=== PATIENT | male | born 1940 | race Caucasian/White ===

== ENCOUNTER → 2018-04-13 11:49 | Outpatient (CLI) | payer MEDICARE, SELFPAY ==
[2018-04-13 14:51] LABS: Absolute Lymphocyte Count 1.65 X10^3/ul (0.83-4.51); Absolute Neutrophil Count 3.3 X10^3/uL (2.0-7.7); Basophil# 0.09 X10^3/uL; Basophil% 1.5 % (0-1); Eosinophil# 0.28 X10^3/uL; Eosinophils% 4.7 % (0-5); Hematocrit 39.6 % (40-54); Hemoglobin 13.4 g/dl (13.0-16.5); Lymphocyte # 1.65 X10^3/ul (4.0); Lymphocyte % 27.6 % (19-41); Mean Corp Hgb Conc 33.8 g/gl (32-36); Mean Corpuscular Hgb 34.6 pg (27.0-32.0); Mean Corpuscular Volume 102.3 fL (80-94); Monocyte# 0.66 X10^3/uL; Monocyte% 11.1 % (0-10); Neutrophil # 3.29 X10^3/uL (2.7-7.7); Neutrophil % 55.1 % (47-70); Platelet Count 230 K/mm3 (150-450); RBC Distribution Width CV 14.6 % (11.6-14.6); RBC Distribution Width SD 54.4 fl (35.1-43.9); Red Blood Count 3.87 M/mm3 (4.6-6.2)
[2018-04-13 14:53] LABS: POSITIVE COUNT NO; POSITIVE DIFFERENTIAL NO; POSITIVE MORPHOLOGY NO
[2018-04-13 15:02] LABS: AST(SGOT) 34 U/L (15-37); Alanine Aminotransfer ALT/SGPT 26 U/L (16-61); Albumin, Serum 3.7 g/dL (3.2-5.0); Alkaline Phosphatase 89 U/L (45-117); Bilirubin, Direct 0.13 mg/dL (0.00-0.30); Globulin 4.2 g/dL (2.2-4.2); Protein, Total 7.9 g/dL (6.4-8.2)
[2018-04-15 15:15] LABS: AFP, Tumor Marker 2.3 ng/mL (0.0-8.3)
--- OUTSIDE RECORDS SUMMARY | 2018-07-15 21:15 | XMS RPT_ITS ---
:1940 Author Organization [facility] Care Team Providers Name Role Phone KAILEY ORDAZ, DR. SINCLAIR Attending Unavailable MIELNA ORDAZ, DR. GONZALES Primary Care Unavailable Ivan Mark Attending Unavailable Kelly Cross Primary Care Unavailable Ivan Mark Attending Unavailable Ivan Mark Referring Unavailable Kelly Cross Primary Care Unavailable PROBLEMS PROBLEMS No Problem Records FoundPROCEDURES PROCEDURES No Procedure Records FoundRESULTS RESULTS ABDOMEN LIMITED Observed: 04/28/2018 Status: F Source: [place] 8:31 AM [facility] REPOSITORY [facility] Imaging Services [address] [place] [address] Abdomen Limited MR#: [id number] Acct: [id number] Name: LIONEL GARRISON Rep #: [id number] : 1940 M 78 From: Master Dasilva MD PCP: Kelly Cross MD Status: REG CLI Study: Abdomen Limited Date of Exam: 04/28/18 Exam# [id number] Ordering Dr: Ivan Mark MD STUDY: ABDOMINAL ULTRASOUND - RIGHT UPPER QUADRANT REASON FOR VISIT: Male, 78 years old. Cirrhosis TECHNIQUE: Ultrasound evaluation of the right upper quadrant was performed with real-time and static daly-scale imaging. TECHNICAL QUALITY: Adequate. COMPARISON: 05/14/2015 ultrasound FINDINGS: Liver: The liver measures 16 cm. There is increased, coarsened echogenicity of the liver. The bile ducts are within normal limits. There is hepatic color flow. The direction of portal flow is hepatopetal. Simple, anechoic cysts of the liver measure up to 1.8 cm. No solid hepatic masses are seen. Gallbladder: Normal distended gallbladder. The gallbladder wall measures 2.8 mm. There is a negative sonographic Mccarthy's sign. There is no pericholecystic fluid. There are multiple echogenic structures within the gallbladder, consistent with multiple gallstones. Common Bile Duct (C.B.D.): The common bile duct measures 3.0 mm. Pancreas: There is increased echogenicity of the visualized pancreas. There is no demonstrated pancreatic mass or cyst. Right Kidney: Normal size of the right kidney. The right kidney measures 10.6 cm. Normal renal cortex. The right cortex measures 2.0 cm. Simple anechoic cyst of the right kidney measures 1.9 cm. There is no right hydronephrosis. US/Abdomen Limited IMPRESSION: 1. No solid hepatic masses identified. 2. Hepatic and right renal simple cysts. 3. Cholelithiasis. 4. Increased echo pattern of the liver can be associated infiltrating processes such as hepatic steatosis, hepatitis or cirrhosis. 5. 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 Electronically Signed: Master Dasilva MD at 14:33 EST , Service support , CC: Kelly Cross MD; Ivan Mark Network Director: Signed CBC W/DIFF, AUTOMATED Collected: 04/13/2018 Status: F Source: [place] 11:55 AM [facility] REPOSITORY TYPE CODE TESTS RESULT OUT OF RANGE REFERENCE UNITS LAB L100.1000 4.4-11.0 K/mm3 Normal WBC 6.0 LAB L100.1200 4.6-6.2 M/mm3 Low RBC 3.87 LAB L100.1300 13.0-16.5 g/dl Normal HGB 13.4 LAB L100.1400 40-54 % Low HCT 39.6 LAB L100.1500 80-94 fL High MCV 102.3 LAB L100.1600 27.0-32.0 pg High MCH 34.6 LAB L100.1700 32-36 g/gl Normal MCHC 33.8 LAB L100.1810 11.6-14.6 % Normal RDW CV 14.6 LAB L100.1820 35.1-43.9 fl High RDW SD 54.4 LAB L100.1900 150-450 K/mm3 Normal PLT 230 LAB L100.2000 6.2-12.0 fl Normal MPV 11.0 LAB L100.2100 47-70 % Normal NEUT% 55.1 LAB L100.2200 19-41 % Normal LY% 27.6 LAB L100.2300 0-10 % High MONO% 11.1 LAB L100.2400 0-5 % Normal EO% 4.7 LAB L100.2500 0-1 % High BASO% 1.5 LAB L100.2550 0.0-0.9 % Normal IM GRAN % 0.000 Result Comment: IG% - Immature Granulocytes (promyelocytes, myelocytes and metamyelocytes) > 1% indicates that a LEFT SHIFT is Present. LAB L100.2620 2.0-7.7 X10 3/uL Normal Absolute Neut 3.3 LAB L100.2720 0.83-4.51 X10 3/ul Normal Absolute Lymph 1.65 Performed By: #### L100.0100 #### [facility] [address] [place], [address] LIVER PROFILE Collected: 04/13/2018 Status: F Source: [place] 11:55 AM [facility] REPOSITORY TYPE CODE TESTS RESULT OUT OF RANGE REFERENCE UNITS LAB L501.1500 6.4-8.2 g/dL Normal T PROT 7.9 LAB L501.1800 3.2-5.0 g/dL Normal ALB 3.7 LAB L501.1950 2.2-4.2 g/dL Normal GLOB 4.2 LAB L501.4100 15-37 U/L Normal AST 34 LAB L501.4305 45-117 U/L Normal ALK P 89 LAB L501.4405 16-61 U/L Normal ALT 26 LAB L501.4600 0.20-1.00 mg/dL Normal T BILI 0.30 LAB L501.4700 0.00-0.30 mg/dL Normal D BILI 0.13 Performed By: #### L500.3400 #### [facility] [address] [place], [address] AFP, TUMOR MARKER Collected: 04/13/2018 Status: F Source: [place] 11:55 AM [facility] REPOSITORY Order Comment: Is Patient ? N TYPE CODE TESTS RESULT OUT OF RANGE REFERENCE UNITS LAB L3300.0700 0.0-8.3 ng/mL Normal AFP TUMOR 2.3 2253 Result Comment: Richelle ECLIA methodology Performed at: [facility] [id number] Gas Leak Tester: Ivan Smith PhD, Phone: [phone] Performed By: #### L3300.0700 #### [facility] (refer to report for specific site) refer to report for address and phone number ALLERGIES ALLERGIES DATE TYPE / CODE NAME / CODE REACTION SEVERITY SOURCE 05/24/2015 Drug No Known Unknown [facility] Allergy/4160 Allergies/F00 Hospital 42651(SNOMED [id number](RXNOR Repository CT) M) ENCOUNTERS ENCOUNTERS ADMIT/DISCHARGE ACCOUNT NUMBER ADMITTING ENCOUNTER LOCATION SOURCE CLASS 04/28/2018 [id number] Ambulatory [facility] ding:US Repository 04/13/2018 [id number] [facility]ulatory [facility] ding:[facility] Repository 05/22/2017/05/22/19 [id number] Ambulatory BBuilding:KIM Carlos [address] [facility] Repository PAYERS PAYERS ENCOUNTER GUARANTOR PAYER SUBSCRIBER SOURCE 04/28/2018 EULE Primary EULE [place] [id number] Insurance:[place] PRAVEENIGERDOB: [facility] [id number] Repository [address]Ezn: (782) Number: [phone] () [id number] Date: JENNIFER [address] [address]SR: 04/28/2018 Secondary NOT GIVENUNK [place] Insurance:SELF PAY [facility] Number: Effective Repository Date:2018-04-21 04/13/2018 [facility] Insurance:[place] SCHARTIGERDOB: [facility] [id number] [place] Repository [id number]: (330) Number: [id number] () [id number] Date: [address] [address]CS: 04/13/2018 Secondary NOT GIVENUNK [place] Insurance:SELF PAY [facility] Number: Effective Repository Date:2018-04-13 05/22/2017 [facility]:SECURECARE SCHARTIGERDOB: [facility] N THP MEDICAREPolicy [id number] Repository PROSPECT Number: N PROSPECT [place], [place] [id number], [place] [address]Yva: ([phone]) Date:2017-05-04 [id number]: () [id number] [phone] Name:[id number] [facility] ()Tel: [phone] [phone] () [place], [place] [address]YW:
== END ==
PROVIDERS: Family Provider Family Medicine; PCP Family Medicine; Visit Provider Internal Medicine Gastroenterology
DX: K74.60 Unspecified cirrhosis of liver (principal); K75.4 Autoimmune hepatitis
CPT/HCPCS: 36415; 80076; 82105; 85025

== ENCOUNTER → 2018-04-28 08:27 | Outpatient (CLI) | payer MEDICARE, SELFPAY ==
--- NOTE | 2018-04-28 08:31 | US_ITS ---
STUDY: ABDOMINAL ULTRASOUND - RIGHT UPPER QUADRANT REASON FOR VISIT: Male, 78 years old. Cirrhosis TECHNIQUE: Ultrasound evaluation of the right upper quadrant was performed with real-time and static daly-scale imaging. TECHNICAL QUALITY: Adequate. COMPARISON: 05/14/2015 ultrasound FINDINGS: Liver: The liver measures 16 cm. There is increased, coarsened echogenicity of the liver. The bile ducts are within normal limits. There is hepatic color flow. The direction of portal flow is hepatopetal. Simple, anechoic cysts of the liver measure up to 1.8 cm. No solid hepatic masses are seen. Gallbladder: Normal distended gallbladder. The gallbladder wall measures 2.8 mm. There is a negative sonographic Mccarthy's sign. There is no pericholecystic fluid. There are multiple echogenic structures within the gallbladder, consistent with multiple gallstones. Common Bile Duct (C.B.D.): The common bile duct measures 3.0 mm. Pancreas: There is increased echogenicity of the visualized pancreas. There is no demonstrated pancreatic mass or cyst. Right Kidney: Normal size of the right kidney. The right kidney measures 10.6 cm. Normal renal cortex. The right cortex measures 2.0 cm. Simple anechoic cyst of the right kidney measures 1.9 cm. There is no right hydronephrosis. US/Abdomen Limited IMPRESSION: 1. No solid hepatic masses identified. 2. Hepatic and right renal simple cysts. 3. Cholelithiasis. 4. Increased echo pattern of the liver can be associated infiltrating processes such as hepatic steatosis, hepatitis or cirrhosis. 5. 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 Electronically Signed: Master Dasilva MD at 14:33 EST , Service support ,
== END ==
PROVIDERS: Family Provider Family Medicine; PCP Family Medicine; Referring Provider Internal Medicine Gastroenterology; Visit Provider Internal Medicine Gastroenterology
DX: K74.60 Unspecified cirrhosis of liver (principal)
CPT/HCPCS: 76705

== ENCOUNTER → 2018-10-19 15:19 | Outpatient (CLI) | payer MEDICARE, SELFPAY ==
--- NOTE | 2018-10-19 12:10 | LES_PTH ---
PATIENT: LIONEL GARRISON LOC: [facility] U#:[id number] AGE/SX: 85/M ROOM: RE10/19/[address]: Dr. Kelly Cross MD : 1940 BED: DIS: SPEC #: [id number] RECD: 10/19/18 15:05 STATUS: ERIC CECE #: [id number] NESS: 10/19/18 12:[address]: Kelly Cross DEPT: SURGICAL PATHOLOGY RECD BY: Linn Tamez Tissues: Skin of hand and finger, NOS Procedures: Surgery Specimen Level IV HEADER OPERATION: Excision of lesion, left hand PRE-OP DIAGNOSIS: Skin lesion L98.9 TISSUE SUBMITTED: Lesion, left hand MICROSCOPIC DIAGNOSIS Lesion, left hand: Benign capillary hemangioma. FA:domenico 10/21/18 MICROSCOPIC DESCRIPTION Slides are reviewed. GROSS DESCRIPTION Received is one container labeled with the patient's name and not further designated. The specimen consists of a pinkish-west skin fragment measuring 1.3 x 1.2 x 0.3 cm. The central portion of the skin fragment is bluish-purple measuring 0.8 cm in diameter. The skin margins are inked purple. The specimen is trisected and totally submitted in one cassette. / FA:domenico 10/20/18 TC:1 CPT: 26124
== END ==
PROVIDERS: Family Provider Family Medicine; PCP Family Medicine; Referring Provider Family Medicine; Visit Provider Family Medicine
DX: L98.9 Disorder of the skin and subcutaneous tissue, unspecified (principal)
CPT/HCPCS: 88305

== ENCOUNTER → 2018-12-09 08:20 | Outpatient (CLI) | payer MEDICARE, SELFPAY ==
[2018-12-09 10:30] LABS: Absolute Lymphocyte Count 1.34 X10^3/uL (0.83-4.51); Absolute Neutrophil Count 2.9 X10^3/uL (2.0-7.7); Basophil# 0.07 X10^3/uL; Basophil% 1.3 % (0-1); Eosinophil# 0.29 X10^3/uL; Eosinophils% 5.4 % (0-5); Hematocrit 39.1 % (40-54); Hemoglobin 13.1 g/dL (13.0-16.5); Lymphocyte # 1.34 X10^3/ul (4.0); Mean Corp Hgb Conc 33.5 g/dL (32-36); Mean Corpuscular Hgb 35.4 pg (27.0-32.0); Mean Corpuscular Volume 105.7 fL (80-94); Monocyte# 0.73 X10^3/uL; Monocyte% 13.6 % (0-10); NRBC Flagged by Analyzer 0 % (0-5); Neutrophil # 2.91 X10^3/uL (2.7-7.7); Neutrophil % 54.5 % (47-70); Platelet Count 258 K/mm3 (150-450); RBC Distribution Width CV 14.2 % (11.6-14.6); RBC Distribution Width SD 55.1 fl (35.1-43.9); White Blood Count 5.4 K/mm3 (4.4-11.0)
[2018-12-09 11:18] LABS: AST(SGOT) 27 U/L (15-37); Alanine Aminotransfer ALT/SGPT 20 U/L (16-61); Albumin, Serum 3.5 g/dL (3.2-5.0); Alkaline Phosphatase 82 U/L (45-117); Protein, Total 7.5 g/dL (6.4-8.2)
[2018-12-10 12:35] LABS: AFP, Tumor Marker 2.2 ng/mL (0.0-8.3)
== END ==
PROVIDERS: Family Provider Family Medicine; PCP Family Medicine; Referring Provider Internal Medicine Gastroenterology; Visit Provider Internal Medicine Gastroenterology
DX: K74.60 Unspecified cirrhosis of liver (principal); K75.4 Autoimmune hepatitis
CPT/HCPCS: 36415; 80076; 82105; 85025

== ENCOUNTER 2019-01-14 22:38 | Emergency (ER) | payer MEDICARE, SELFPAY ==
[2019-01-14 22:38] VITALS: BP 156/86; PULSE 61; RESP 16; TEMP 36.7; O2SAT 98; BMI 27.7
--- NOTE | 2019-01-14 22:50 | RAD_ITS ---
HISTORY: PAIN S/P FALL TODAY XAMINATION/TECHNIQUE: XR left wrist 3 views COMPARISON: None FINDINGS: Acute, nondisplaced fracture of the mid pole of the carpal navicular.. No dislocation. The remaining visualized bones appear intact. 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 No additional findings are noted RAD/Wrist min 3 Views IMPRESSION: 1. Acute, nondisplaced mid pole fracture of the carpal navicular, left wrist. 2. Osteoarthritis of the scaphotrapezial-trapezoidal joint. at 1811 Reported and signed by: Blas Julien MD Electronically Signed: Blas Julien, at 23:14 EDT Tel , Service support ,
--- NOTE | 2019-01-14 23:17 | ED.VIS.GEN ---
History of Present Illness Chief Complaint: Upper Extremity Injury Narrative: This patient is a 78-year-old male who presents with left wrist pain. He fell about 6 hours ago. He tripped over a crack in the concrete and fell onto an outstretched left hand. Initially he was trying to manage his pain at home but it continued to worsen so he presented here. No numbness tingling or weakness. No other injuries. No head injury loss of consciousness chest pain back pain shortness of breath abdominal pain or injury to any of the other extremities. Past Medical History - Allergies and Home Meds Allergies/Adverse Reactions: Allergies No Known Allergies Allergy (Verified 01/14/19 22:54) Primary Care Physician: Kelly Cross MD [Primary Care Provider] - Past Medical History: - - Autoimmune hepatitis Smoking Status: Former smoker Review of Systems All systems negative except as indicated General: Denies: Fever Cardiovascular: Denies: Chest pain Respiratory: Denies: Dyspnea Gastrointestinal: Denies: Vomiting Musculoskeletal: Reports: - - Left wrist pain Physical Exam Vital Signs/Narrative: Vital Signs Temp Pulse Resp BP Pulse Ox 01/14/19 22:38 98.1 F 61 16 156/86 H 98 Inital Vital Signs reviewed: Yes General: Well nourished, Well developed Head: Normocephalic Eyes: EOMI ENT: Moist mucous membranes Neck: Supple Cardiovascular: Regular rate, Regular rhythm Respiratory: No distress, CTA bilaterally Extremities: - - Patient has focal tenderness at the anatomical snuffbox on the left he has no pain with supination or pronation of forearm no pain at the elbow he has normal sensation in the median ulnar and radial nerve distributions normal opposition of the digits brisk capillary refill and no tenderness in the hand Skin: Normal color Neurological: Alert Psychological: Normal affect Diagnostic/Tx/Re-eval - Medical Decision Making Left wrist x-ray on my review does show a scaphoid fracture. Distal ulnar and radius appear intact. He was given a thumb spica splint, [place], prescription for [place], he will follow-up with orthopedics. He has previously seen Dr. Hinton. ED Disposition - Plan for ED Patient: Disposition: Home or Assisted Living Diagnosis: Scaphoid fracture Instructions: NAVICULAR FRACTURE, Wrist (Confirmed) Prescriptions: Hydrocodone Bitart/Apap 5-325 [[place] 5MG-325MG] 1 tab PO Q6H PRN 3 Days #10 tab PRN Reason: Pain Prescription Printed Referrals: Kelly Cross MD [Primary Care Provider] -
[2019-01-14] MEDS: HYDROcodone Bitartrate/Apap 5/325 Tablet PO (23:29)
[2019-01-14 23:34] VITALS: RESP 16
== END 2019-01-14 23:35 | disposition home or self-care (01) ==
PROVIDERS: Emergency Provider Emergency Medicine; Family Provider Family Medicine; PCP Family Medicine
DX: S92.252A Displaced fracture of navicular [scaphoid] of left foot, initial encounter for closed fracture (principal); W01.0XXA Fall on same level from slipping, tripping and stumbling without subsequent striking against object, initial encounter; Y93.9 Activity, unspecified; Y92.9 Unspecified place or not applicable; Y99.9 Unspecified external cause status; Z87.891 Personal history of nicotine dependence
CPT/HCPCS: 73110; 99283

== ENCOUNTER → 2020-02-10 15:37 | Outpatient (CLI) | payer MEDICARE, SELFPAY ==
[2020-02-11 07:16] LABS: SARS-COV-2 TOTAL ABS Nonreactive (Nonreactive)
== END ==
PROVIDERS: PCP Family Medicine; Referring Provider Family Medicine; Visit Provider Family Medicine
DX: Z20.828 Contact with and (suspected) exposure to other viral communicable diseases (principal)
CPT/HCPCS: 36415; 86769

== ENCOUNTER 2020-06-13 15:08 | Outpatient (RCR) | payer MEDICARE, SELFPAY | END 2020-06-13 23:59 | LOC: IMMUN 15:08 | PROVIDERS: PCP Family Medicine; Referring Provider Family Medicine; Visit Provider Family Medicine | DX: Z23 Encounter for immunization (principal) | CPT/HCPCS: 0011A; 0012A; 91301 ==

== ENCOUNTER → 2020-07-03 10:34 | Outpatient (CLI) | payer MEDICARE, SELFPAY ==
[2020-07-03 12:28] LABS: PSA,Total - Annual Screen 2.54 ng/mL (0.00-4.00)
== END ==
PROVIDERS: PCP Family Medicine; Referring Provider Family Medicine; Visit Provider Family Medicine
DX: Z00.00 Encounter for general adult medical examination without abnormal findings (principal); R35.1 Nocturia
CPT/HCPCS: 36415; 84153; G0103

== ENCOUNTER → 2021-02-01 09:49 | Outpatient (CLI) | payer MEDICARE, SELFPAY ==
[2021-02-01 13:07] LABS: Absolute Lymphocyte Count 2.01 X10^3/uL (0.83-4.51); Absolute Neutrophil Count 3.3 X10^3/uL (2.0-7.7); Basophil# 0.12 X10^3/uL; Basophil% 1.9 % (0-1); Eosinophil# 0.24 X10^3/uL; Eosinophils% 3.7 % (0-5); Hematocrit 37.6 % (40-54); Hemoglobin 12.7 g/dL (13.0-16.5); Lymphocyte # 2.01 X10^3/ul (0.83-4.51); Mean Corp Hgb Conc 33.8 g/dL (32-36); Mean Corpuscular Hgb 34.5 pg (27.0-32.0); Mean Corpuscular Volume 102.2 fL (80-94); Mean Platelet Vol. 11.5 fl (6.2-12.0); Monocyte# 0.81 X10^3/uL; Monocyte% 12.5 % (0-10); NRBC Flagged by Analyzer 0 % (0-5); Neutrophil # 3.29 X10^3/uL (2.7-7.7); Neutrophil % 50.7 % (47-70); Platelet Count 233 K/mm3 (150-450); RBC Distribution Width CV 14.5 % (11.6-14.6); RBC Distribution Width SD 55.1 fl (35.1-43.9); Red Blood Count 3.68 M/mm3 (4.6-6.2); White Blood Count 6.5 K/mm3 (4.4-11.0)
[2021-02-01 13:43] LABS: AST(SGOT) 31 U/L (15-37); Alanine Aminotransfer ALT/SGPT 22 U/L (16-61); Albumin, Serum 3.3 g/dL (3.2-5.0); Alkaline Phosphatase 89 U/L (45-117); Bilirubin, Direct 0.12 mg/dL (0.00-0.30); Globulin 4.6 g/dL (2.2-4.2); Protein, Total 7.9 g/dL (6.4-8.2)
[2021-02-02 10:11] LABS: AFP, Tumor Marker 2.1 ng/mL (0.0-8.3)
== END ==
PROVIDERS: PCP Family Medicine; Referring Provider Internal Medicine Gastroenterology; Visit Provider Internal Medicine Gastroenterology
DX: K74.60 Unspecified cirrhosis of liver (principal)
CPT/HCPCS: 36415; 80076; 82105; 85025

== ENCOUNTER 2021-04-29 13:53 | Outpatient (CLI) | payer MEDICARE, SELFPAY ==
--- NOTE | 2021-04-29 14:15 | MRI_ITS ---
STUDY: MRI ABDOMEN WITH AND WITHOUT CONTRAST REASON FOR EXAM: Male, 81 years old. CIRRHOSIS TECHNIQUE: Standardized fat and water weighted pulse sequences were obtained in all 3 orthogonal planes post contrast administration. IV Yes Dotarem 15mL was administered for the contrast portion of the examination. COMPARISON: None. FINDINGS: The visualized lung bases are unremarkable. The visualized portions of the heart are within normal limits. Up to 1 cm cysts in the liver. Lobulated hepatic contour suggesting cirrhosis. Cholelithiasis. No significant dilatation of the extrahepatic biliary system. Small spleen or residual splenic nodule. Normal pancreas. Normal bilateral adrenal glands. 1.8 cm cyst of the right kidney. Subcentimeter cysts in left kidney. Normal visualized stomach. Normal visualized small intestine and colon. Normal abdominal aorta. Normal inferior vena cava. Normal retroperitoneum. Normal abdominal wall. Normal osseous structures. MRI/MRI Abd WITH and W/O Contrast IMPRESSION: Cirrhosis. Hepatic and renal cysts. Cholelithiasis. Electronically Signed: Samy Kingsley DO at 16:29 EST Tel [phone], Service support ,
[2021-04-29 14:30] LABS: CREATININE FINGERSTICK 0.9 mg/dL (0.70-1.30); EGFR FINGERSTICK > 60.0000 mL/min (>60)
== END 2021-04-29 23:59 | disposition short-term general hospital (02) ==
PROVIDERS: PCP Family Medicine; Visit Provider Internal Medicine Gastroenterology
DX: K74.60 Unspecified cirrhosis of liver (principal)
CPT/HCPCS: 74183; A9575

== ENCOUNTER 2021-07-23 07:47 | Outpatient (CLI) | payer MEDICARE, SELFPAY ==
--- NOTE | 2021-07-23 08:03 | CT_ITS ---
STUDY: CT SCAN LOWER EXTREMITY RIGHT REASON FOR EXAM: Male, 81 years old. VARUS DEFORMITY.NATI protocol. RADIATION DOSAGE (If Supplied By Facility): CTDIvol = ( 22.39 ) mGy, DLP = ( 3152.13 ) mGycm. Individualized dose optimization techniques were used for this CT.? TECHNIQUE: Multiple axial tomographic images of the right lower extremity were obtained. Coronal and sagittal reconstruction was obtained as well. COMPARISON: None. FINDINGS: Imaging of the right hip joint was performed. There is a moderate degree of joint space narrowing. Degenerative spurring is seen along the superior and inferior aspect of the femoral head as well as acetabular spurs. Imaging of the knee joint was obtained. There is a marked degree of joint space narrowing involving the medial compartment of the knee joint. Mild degree of degenerative changes of the lateral compartment of knee joint with evidence of chondral calcinosis. Moderate degree of joint space narrowing of the patellofemoral joint with spur formation. Lejlg-cq-cokztnbt joint effusion. Imaging of the ankle joint was obtained. No significant abnormality is seen. 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 Marked degree of the joint space narrowing involving the medial compartment of knee joint. Mild degree of joint space and of the lateral compartment of knee joint with chondrocalcinosis. Moderate degree of joint space time of the patellofemoral joint with spur formation and joint effusion. Electronically Signed: Rolando Dodge MD at 15:32 EDT ,
== END 2021-07-23 23:59 | disposition home or self-care (01) ==
LOC: CT 07:48
PROVIDERS: PCP Family Medicine; Referring Provider Orthopaedic Surgery; Visit Provider Orthopaedic Surgery
DX: M21.161 Varus deformity, not elsewhere classified, right knee (principal)
CPT/HCPCS: 73700

== ENCOUNTER 2021-07-23 13:41 | Outpatient (CLI) | payer MEDICARE, SELFPAY ==
--- NOTE | 2021-07-23 08:34 | EKG12_ITS ---
Test Reason : PREOP Blood Pressure : / mmHG Vent. Rate : 072 BPM Atrial Rate : 072 BPM P-R Int : 142 ms QRS Dur : 070 ms QT Int : 392 ms P-R-T Axes : 000 020 -18 degrees QTc Int : 429 ms Normal sinus rhythm ST & T wave abnormality, consider lateral ischemia Abnormal ECG Confirmed by DYLON EMERSON, GABRIEL ([id number]), editor news CHARLOTTE LAWS ([id number]) on 07/24/2021 1:45:39 PM Referred By: Khris Hinton Confirmed By:GABRIEL OSBORNE MD
[2021-07-23 09:04] LABS: Hematocrit 38.6 % (40-54); Hemoglobin 13.4 g/dL (13.0-16.5); Mean Corp Hgb Conc 34.7 g/dL (32-36); Mean Corpuscular Hgb 33.7 pg (27.0-32.0); Mean Platelet Vol. 10.7 fl (6.2-12.0); Platelet Count 232 K/mm3 (150-450); RBC Distribution Width CV 13.7 % (11.6-14.6); Red Blood Count 3.98 M/mm3 (4.6-6.2); White Blood Count 8.9 K/mm3 (4.4-11.0)
[2021-07-23 09:37] LABS: ALB/GLOB Ratio 0.8 RATIO (0.9-2.4); AST(SGOT) 35 U/L (15-37); Alanine Aminotransfer ALT/SGPT 26 U/L (16-61); Albumin, Serum 3.6 g/dL (3.2-5.0); Alkaline Phosphatase 84 U/L (45-117); Anion Gap 1 (5-15); BUN 21 mg/dL (7-18); BUN/Creat Ratio 20.8 RATIO (10-20); Calcium,Total 8.9 mg/dL (8.5-10.1); Chloride 104 mmol/L (98-107); Creatinine, Serum 1.01 mg/dL (0.70-1.30); EST Glomerular Filtration Rate 76 mL/min (>60); Est Glom Filt Rate - Afr Amer 92 mL/min (>60); Globulin 4.5 g/dL (2.2-4.2); Glucose 98 mg/dL (74-106); Magnesium 2.6 mg/dL (1.6-2.6); Potassium 4.3 mmol/L (3.5-5.1); Protein, Total 8.1 g/dL (6.4-8.2); Sodium Level 136 mmol/L (136-145)
[2021-07-23 09:48] LABS: Hemoglobin A1c 5.2 % (3.8-5.6)
[2021-07-24 11:54] LABS: Phosphorus 2.9 mg/dL (2.5-4.9)
== END 2021-07-23 23:59 | disposition home or self-care (01) ==
LOC: PAT 08-15 13:41
PROVIDERS: Anesthesiology; PCP Family Medicine; Referring Provider Orthopaedic Surgery; Visit Provider Orthopaedic Surgery
DX: Z01.818 Encounter for other preprocedural examination (principal)
CPT/HCPCS: 36415; 80053; 83036; 83735; 84100; 85027; 85610; 85730; 87081; 93005

== ENCOUNTER → 2021-10-14 | Outpatient (CLI) | payer MEDICARE, SELFPAY ==
--- NOTE | 2021-10-14 06:18 | ECHOD_ITS ---
Reason For Study: CAD/ASHD Procedure This was a 2D Doppler, Color Flow transthoracic echocardiogram. Exam performed in department. Left Ventricle Normal LV size. Left ventricular systolic function is normal. The estimated ejection fraction is 60 %. Stage 2 diastolic dysfunction. No regional wall motion abnormalities noted. Right Ventricle Normal RV size. Normal systolic function. Atria Normal left atrium. Normal right atrium. Mitral Valve Normal mitral valve. Mild (1+) eccentric mitral valve insufficiency. Tricuspid Valve Normal tricuspid valve. Mild tricuspid valve insufficiency. Pulmonary artery systolic pressure is 29 mmHg. Aortic Valve Trisinus/trileaflet aortic valve. Mild focal aortic valve calcification. Mild (1+) eccentric aortic valve insufficiency. Pulmonic Valve Normal pulmonic valve. Great Vessels Normal aortic root. The pulmonary artery is normal size. Normal inferior vena cava. Pericardium/Pleural No pericardial effusion. MMode/2D Measurements & Calculations LVIDd: 4.0 cm IVSd: 1.3 cm LVOT diam: 2.2 cm LVIDs: 2.3 cm LVPWd: 1.3 cm LVOT area: 4.0 cm2 RVDd: 3.9 cm FS: 43.6 % Ao root diam: 3.9 cm LAV(MOD-bp): 53.6 ml LVAd ap4: 27.8 cm2 LAV(MOD-bp) Indexed: 28.2 ml/m2 LVLd ap4: 7.5 cm LAV(MOD-sp2): 59.8 ml EDV(MOD-sp4): 83.3 ml LAV(MOD-sp4): 40.9 ml EDV(sp4-el): 87.4 ml LVAs ap4: 16.5 cm2 LVLs ap4: 6.7 cm ESV(MOD-sp4): 34.3 ml ESV(sp4-el): 34.8 ml EF(MOD-sp4): 58.9 % EF(sp4-el): 60.1 % LVAd ap2: 21.1 cm2 SV(MOD-sp4): 49.0 ml SV(MOD-sp2): 25.8 ml LVLd ap2: 7.6 cm EDV(MOD-sp2): 45.7 ml EDV(sp2-el): 49.3 ml LVAs ap2: 12.0 cm2 LVLs ap2: 6.3 cm ESV(MOD-sp2): 20.0 ml ESV(sp2-el): 19.7 ml EF(MOD-sp2): 56.4 % SV(sp4-el): 52.6 ml LA dimension(2D): 3.5 cm LA A4 area: 15.3 cm2 RA A4 area: 19.1 cm2 Doppler Measurements & Calculations MV E max leandro: 67.4 cm/sec Lat Peak E' Leandro: 6.6 cm/sec Med Peak E' Leandro: 6.6 cm/sec MV A max leandro: 58.2 cm/sec E/E' lat: 10.2 E/E' med: 10.2 MV E/A: 1.2 MV V2 max: 82.3 cm/sec MV P1/2t max leandro: 83.8 cm/sec Ao V2 max: 107.9 cm/sec MV max P.7 mmHg MV P1/2t: 57.3 msec Ao max P.7 mmHg MV V2 mean: 46.1 cm/sec MV dec slope: 428.0 cm/sec2 MANJINDER(V,D): 3.9 cm2 MV mean P.0 mmHg MV V2 VTI: 23.9 cm MVA(P1/2t): 3.8 cm2 AI max leandro: 434.3 cm/sec LV V1 max: 106.0 cm/sec MR max leandro: 687.1 cm/sec AI max P.7 mmHg LV V1 max P.5 mmHg MR max P.8 mmHg AI dec slope: 226.4 cm/sec2 AI P1/2t: 561.9 msec PA V2 max: 78.5 cm/sec TR max leandro: 255.1 cm/sec TR max P.0 mmHg ECHO/Echo Complete Interpretation Summary Normal LV size. Left ventricular systolic function is normal. The estimated ejection fraction is 60 %. Mild (1+) eccentric mitral valve insufficiency. Mild tricuspid valve insufficiency. Pulmonary artery systolic pressure is 29 mmHg. Mild (1+) eccentric aortic valve insufficiency. Stage 2 diastolic dysfunction. Ordering Physician: Andrey Xiong Referring Physician: Andrey Xiong Performed By: Radha Luevano RCS
--- NOTE | 2021-10-14 18:39 | STRESSREP ---
Stress Test Report Exercise myocardial perfusion stress test. 81-year-old man with a history of knee surgery for preoperative cardiac evaluation. Stress protocol: Resting EKG demonstrates normal sinus rhythm with a rate of 53 bpm normal intervals are noted resting blood pressure is 140/68 mmHg. The patient exercised according to regular Mariusz protocol for total duration of 6 minutes. The maximum heart rate attained was 144 bpm which was 102% of max impacted heart rate the maximum workload was 7.3 metabolic equivalents. At rest there were no ST or T wave changes noted suggest ischemia and at peak exercise upsloping ST changes were noted with did not meet the criteria for ischemia. No clinical angina was noted. The test was terminated due to the target heart rate being achieved. Myocardial perfusion protocol. 11.9 mCi of technetium 99m sestamibi was injected at rest. The patient exercised according to regular Mariusz protocol and at peak exercise 32.1 mCi of technetium 99m sestamibi was injected stress images were obtained stress and rest images were reconstructed in comparing the short axis vertical long and horizontal long axis. Gated images were also obtained for Perfusion SPECT analysis: Review of the stress images demonstrate normal uptake of tracer noted in all areas of the myocardium. The resting images similar demonstrate normal uptake of tracer noted in all areas of the myocardium. No areas of reversibility are noted suggest ischemia and no previous infarct is noted. Gated SPECT analysis: The gated ejection fraction is noted to be 77%. Conclusion: Normal exercise myocardial perfusion stress test at a moderate workload. Preserved ejection fraction.
== END | disposition home or self-care (01) ==
LOC: CVS 06:15
PROVIDERS: PCP Family Medicine; Referring Provider Internal Medicine Cardiovascular Disease; Visit Provider Internal Medicine Cardiovascular Disease
DX: Z01.810 Encounter for preprocedural cardiovascular examination (principal); I25.10 Atherosclerotic heart disease of native coronary artery without angina pectoris; R94.31 Abnormal electrocardiogram [ECG] [EKG]
CPT/HCPCS: 78452; 93017; 93306; A9500; A4216

== ENCOUNTER → 2022-01-03 | Outpatient (CLI) | payer MEDICARE, SELFPAY ==
[2022-01-03 15:27] LABS: Absolute Lymphocyte Count 2.05 X10^3/uL (0.83-4.51); Absolute Neutrophil Count 3.5 X10^3/uL (2.0-7.7); Basophil# 0.08 X10^3/uL; Basophil% 1.2 % (0-1); Eosinophil# 0.31 X10^3/uL; Eosinophils% 4.5 % (0-5); Hematocrit 34.7 % (40-54); Hemoglobin 11.7 g/dL (13.0-16.5); Lymphocyte # 2.05 X10^3/ul (0.83-4.51); Lymphocyte % 29.6 % (19-41); Mean Corp Hgb Conc 33.7 g/dL (32-36); Mean Corpuscular Hgb 34.1 pg (27.0-32.0); Mean Corpuscular Volume 101.2 fL (80-94); Mean Platelet Vol. 11.7 fl (6.2-12.0); Monocyte# 0.92 X10^3/uL; Monocyte% 13.3 % (0-10); NRBC Flagged by Analyzer 0 % (0-5); Neutrophil # 3.54 X10^3/uL (2.7-7.7); Neutrophil % 51.1 % (47-70); Platelet Count 232 K/mm3 (150-450); RBC Distribution Width CV 14.5 % (11.6-14.6); RBC Distribution Width SD 53.3 fl (35.1-43.9); Red Blood Count 3.43 M/mm3 (4.6-6.2); White Blood Count 6.9 K/mm3 (4.4-11.0)
[2022-01-03 15:50] LABS: AST(SGOT) 32 U/L (15-37); Alanine Aminotransfer ALT/SGPT 26 U/L (16-61); Albumin, Serum 3.3 g/dL (3.2-5.0); Alkaline Phosphatase 73 U/L (45-117); Bilirubin, Direct 0.09 mg/dL (0.00-0.30); Globulin 4.1 g/dL (2.2-4.2); Protein, Total 7.4 g/dL (6.4-8.2)
== END | disposition home or self-care (01) ==
LOC: MTLAB 11:10
PROVIDERS: PCP Family Medicine; Referring Provider Internal Medicine Gastroenterology; Visit Provider Internal Medicine Gastroenterology
DX: K74.60 Unspecified cirrhosis of liver (principal); K75.4 Autoimmune hepatitis
CPT/HCPCS: 36415; 80076; 82105; 85025

== ENCOUNTER → 2022-07-22 | Outpatient (CLI) | payer MEDICARE, SELFPAY ==
[2022-07-22 15:42] LABS: Absolute Neutrophil Count 3.2 X10^3/uL (2.0-7.7); Basophil# 0.12 X10^3/uL; Basophil% 1.8 % (0-1); Eosinophil# 0.41 X10^3/uL; Eosinophils% 6.1 % (0-5); Hematocrit 34.6 % (40-54); Hemoglobin 11.7 g/dL (13.0-16.5); Lymphocyte % 31.3 % (19-41); Mean Corp Hgb Conc 33.8 g/dL (32-36); Mean Corpuscular Hgb 34.5 pg (27.0-32.0); Mean Corpuscular Volume 102.1 fL (80-94); Mean Platelet Vol. 11.7 fl (6.2-12.0); Monocyte# 0.85 X10^3/uL; Monocyte% 12.6 % (0-10); NRBC Flagged by Analyzer 0 % (0-5); Neutrophil # 3.22 X10^3/uL (2.7-7.7); Neutrophil % 47.9 % (47-70); Platelet Count 229 K/mm3 (150-450); RBC Distribution Width CV 13.7 % (11.6-14.6); RBC Distribution Width SD 51.6 fl (35.1-43.9); Red Blood Count 3.39 M/mm3 (4.6-6.2); White Blood Count 6.7 K/mm3 (4.4-11.0)
[2022-07-22 16:34] LABS: AST(SGOT) 38 U/L (15-37); Alanine Aminotransfer ALT/SGPT 26 U/L (16-61); Albumin, Serum 3.4 g/dL (3.2-5.0); Alkaline Phosphatase 82 U/L (45-117); Bilirubin, Direct 0.09 mg/dL (0.00-0.30); Globulin 4.1 g/dL (2.2-4.2); Protein, Total 7.5 g/dL (6.4-8.2)
[2022-07-24 09:30] LABS: AFP, Tumor Marker 1.8 ng/mL (0.0-8.4)
== END | disposition home or self-care (01) ==
LOC: MTLAB 13:44
PROVIDERS: PCP Family Medicine; Referring Provider Internal Medicine Gastroenterology; Visit Provider Internal Medicine Gastroenterology
DX: K74.60 Unspecified cirrhosis of liver (principal); K75.4 Autoimmune hepatitis
CPT/HCPCS: 36415; 80076; 82105; 85025

== ENCOUNTER → 2023-02-17 | Outpatient (CLI) | payer MEDICARE, SELFPAY ==
[2023-02-17 10:23] LABS: Absolute Lymphocyte Count 2.59 X10^3/uL (0.83-4.51); Basophil# 0.09 X10^3/uL; Basophil% 1.3 % (0-1); Eosinophil# 0.37 X10^3/uL; Eosinophils% 5.3 % (0-5); Hematocrit 37.2 % (40-54); Hemoglobin 12.4 g/dL (13.0-16.5); Lymphocyte # 2.59 X10^3/ul (0.83-4.51); Lymphocyte % 36.8 % (19-41); Mean Corp Hgb Conc 33.3 g/dL (32-36); Mean Corpuscular Hgb 33.6 pg (27.0-32.0); Mean Corpuscular Volume 100.8 fL (80-94); Mean Platelet Vol. 10.8 fl (6.2-12.0); Monocyte# 1.02 X10^3/uL; Monocyte% 14.5 % (0-10); NRBC Flagged by Analyzer 0 % (0-5); Neutrophil # 2.95 X10^3/uL (2.7-7.7); Neutrophil % 41.8 % (47-70); Platelet Count 245 K/mm3 (150-450); RBC Distribution Width SD 51.8 fl (35.1-43.9); Red Blood Count 3.69 M/mm3 (4.6-6.2)
[2023-02-17 11:05] LABS: AST(SGOT) 46 U/L (15-37); Alanine Aminotransfer ALT/SGPT 31 U/L (16-61); Albumin, Serum 3.3 g/dL (3.2-5.0); Alkaline Phosphatase 85 U/L (45-117); Bilirubin, Direct 0.12 mg/dL (0.00-0.30); Globulin 4.3 g/dL (2.2-4.2); Protein, Total 7.6 g/dL (6.4-8.2)
[2023-02-18 04:07] LABS: AFP, Tumor Marker 2.7 ng/mL (0.0-6.4)
== END | disposition home or self-care (01) ==
LOC: MTLAB 08:56
PROVIDERS: PCP Family Medicine; Referring Provider Internal Medicine Gastroenterology; Visit Provider Internal Medicine Gastroenterology
DX: K74.60 Unspecified cirrhosis of liver (principal); K75.4 Autoimmune hepatitis
CPT/HCPCS: 36415; 80076; 82105; 85025

== ENCOUNTER → 2023-04-14 | Outpatient (CLI) | payer MEDICARE, SELFPAY ==
--- NOTE | 2023-04-14 14:38 | RAD_ITS ---
STUDY: X-RAY CHEST REASON FOR EXAM: Male, 83 years old. Chest pain. TECHNIQUE: Frontal and lateral views of the chest. COMPARISON: None. FINDINGS: Mild hyperinflation. There is no demonstrated pleural abnormality. Cardiomegaly. Normal mediastinum and gus. Normal visualized pulmonary arteries. Aortic tortuosity with calcification. Thoracic osteopenia with spondylosis and mild anterior wedging of a midthoracic vertebral body, age undetermined. Normal visualized ribs, clavicles, and shoulders. No abnormality of the visualized soft tissue structures of the upper abdomen. RAD/Chest PA and Lateral IMPRESSION: Cardiomegaly with hyperinflation and no acute or active cardiopulmonary disease. Electronically Signed: Lionel Sarkar MD at 15:41 EST ,
== END | disposition home or self-care (01) ==
LOC: MTRAD 14:35
PROVIDERS: PCP Family Medicine; Referring Provider Family Medicine; Visit Provider Family Medicine
DX: R07.9 Chest pain, unspecified (principal)
CPT/HCPCS: 71046

== ENCOUNTER → 2023-12-15 | Outpatient (CLI) | payer MEDICARE, SELFPAY ==
[2023-12-15 12:30] LABS: Absolute Lymphocyte Count 2.75 X10^3/uL (0.83-4.51); Absolute Neutrophil Count 3.1 X10^3/uL (2.0-7.7); Basophil# 0.11 X10^3/uL; Basophil% 1.5 % (0-1); Eosinophils% 4.1 % (0-5); Hematocrit 37.3 % (40-54); Hemoglobin 12.6 g/dL (13.0-16.5); Lymphocyte # 2.75 X10^3/ul (0.83-4.51); Mean Corp Hgb Conc 33.8 g/dL (32-36); Mean Corpuscular Hgb 34.7 pg (27.0-32.0); Mean Corpuscular Volume 102.8 fL (80-94); Monocyte# 0.92 X10^3/uL; Monocyte% 12.7 % (0-10); NRBC Flagged by Analyzer 0 % (0-5); Neutrophil # 3.13 X10^3/uL (2.7-7.7); Neutrophil % 43.4 % (47-70); Platelet Count 244 K/mm3 (150-450); RBC Distribution Width CV 14.3 % (11.6-14.6); Red Blood Count 3.63 M/mm3 (4.6-6.2); White Blood Count 7.2 K/mm3 (4.4-11.0)
[2023-12-15 12:42] LABS: AST(SGOT) 32 U/L (15-37); Alanine Aminotransfer ALT/SGPT 14 U/L (16-61); Albumin, Serum 3.4 g/dL (3.2-5.0); Alkaline Phosphatase 76 U/L (45-117); Bilirubin, Direct 0.15 mg/dL (0.00-0.30); Globulin 4.3 g/dL (2.2-4.2); Protein, Total 7.7 g/dL (6.4-8.2)
== END | disposition home or self-care (01) ==
PROVIDERS: PCP Family Medicine; Referring Provider Internal Medicine Gastroenterology; Visit Provider Internal Medicine Gastroenterology
DX: K74.60 Unspecified cirrhosis of liver (principal); K75.4 Autoimmune hepatitis
CPT/HCPCS: 36415; 80076; 85025

== ENCOUNTER → 2024-03-15 | Outpatient (CLI) | payer MEDICARE, SELFPAY ==
[2024-03-15 10:07] LABS: Anion Gap 7 (5-15); BUN 16 mg/dL (7-18); BUN/Creat Ratio 15.8 RATIO (10-20); Calcium,Total 8.7 mg/dL (8.5-10.1); Chloride 104 mmol/L (98-107); Cholesterol 171 mg/dL (200); Creatinine, Serum 1.01 mg/dL (0.70-1.30); EST Glomerular Filtration Rate 75 mL/min (>60); Est Glom Filt Rate - Afr Amer 91 mL/min (>60); Glucose 103 mg/dL (74-106); High Density Lipoprotein 45 mg/dL; PSA,Total - Annual Screen 5.19 ng/mL (0.00-4.00); Potassium 3.4 mmol/L (3.5-5.1); Sodium Level 137 mmol/L (136-145); Triglycerides 81 mg/dL; Very Low Density Lipoprotein 16 mg/dL (5-40)
== END | disposition home or self-care (01) ==
LOC: MFPLAB 08:04
PROVIDERS: PCP Family Medicine; Visit Provider Nurse Practitioner Family
DX: Z13.1 Encounter for screening for diabetes mellitus (principal); Z13.220 Encounter for screening for lipoid disorders; Z12.5 Encounter for screening for malignant neoplasm of prostate
CPT/HCPCS: 36415; 80048; 80061; 84153; G0103

== ENCOUNTER → 2024-11-09 | Outpatient (CLI) | payer MEDICARE, SELFPAY ==
[2024-11-09 10:48] LABS: Hematocrit 35.9 % (40-54); Hemoglobin 12.5 g/dL (13.0-16.5); Immature Granulocytes Count 0.010 X10^3/uL (0.0-0.0); Mean Corp Hgb Conc 34.8 g/dL (32-36); Mean Corpuscular Volume 101.7 fL (80-94); Mean Platelet Vol. 10.9 fl (6.2-12.0); NRBC Flagged by Analyzer 0.3 % (0-5); Platelet Count 257 K/mm3 (150-450); RBC Distribution Width CV 14.9 % (11.6-14.6); RBC Distribution Width SD 56.0 fl (35.1-43.9); Red Blood Count 3.53 M/mm3 (4.6-6.2); White Blood Count 6.0 K/mm3 (4.4-11.0)
[2024-11-09 11:32] LABS: AST(SGOT) 34 U/L (<=37); Alanine Aminotransfer ALT/SGPT 13 U/L (<=46); Albumin, Serum 4.1 g/dL (3.4-4.8); Alkaline Phosphatase 76 U/L (40-129); Bilirubin, Direct 0.16 mg/dL (0.00-0.30); Globulin 3.5 g/dL (2.2-4.2)
[2024-11-10 05:07] LABS: PSA, Free 2.16 ng/mL; PSA, Free % 39.4 % (.); PSA, Total Ultrasensitive 5.480 ng/mL (0.000-4.000)
== END | disposition home or self-care (01) ==
LOC: MTLAB 08:05
PROVIDERS: PCP Family Medicine; Referring Provider Nurse Practitioner Family; Visit Provider Nurse Practitioner Family
DX: K74.60 Unspecified cirrhosis of liver (principal); K75.4 Autoimmune hepatitis; R97.20 Elevated prostate specific antigen [PSA]
CPT/HCPCS: 36415; 80076; 82105; 84153; 84154; 85025